=== PATIENT | female | born 1985 | race Two or more races ===

== ENCOUNTER 2018-05-01 14:00 | Emergency (ER) | payer OTHER ==
[~2018-05-01] VITALS: Ht 170.2 cm; Wt 72.6 kg
[~2018-05-01 14:00] MED LIST: CALCTAB25 PO; PREN-96 PO
[2018-05-01 17:07] LABS: Urine Bacteria NONE SEEN /hpf (None Seen); Urine Blood Negative /uL (Negative); Urine Specific Gravity 1.009 (1.001-1.035); Urine WBC 1 /hpf (0 - 5)
[2018-05-01 17:20] VITALS: BP 142/80
== END 2018-05-01 18:22 | disposition home or self-care (01) ==
LOC: ER 14:18
DX: O20.0 Threatened abortion (principal); Z3A.01 Less than 8 weeks gestation of pregnancy
CPT/HCPCS: 36415; 76801; 81001; 84702; 93005

== ENCOUNTER → 2018-06-05 | Outpatient (CLI) | payer OTHER ==
[2018-06-05 11:14] LABS: Basophils # (auto) 0 uL; Basophils % (auto) 0.2 % (0.0-2.0); Eosinophils # (auto) 0.1 uL; Eosinophils % (auto) 1.1 % (0.0-7.0); Hematocrit 39.8 % (36.0-46.0); Hemoglobin 13.2 g/dL (12.2-16.2); Lymphocytes # (auto) 1.9 uL; Lymphocytes % (auto) 22.7 % (10.0-50.0); Mean Corpuscular Hemoglobin 30.4 pg (28.0-32.0); Mean Corpuscular Hgb Conc. 33.2 g/dL (32.0-36.0); Mean Corpuscular Volume 91.7 fL (80.0-100.0); Monocytes # (auto) 0.4 uL; Monocytes % (auto) 4.9 % (0.0-12.0); Neutrophils % (auto) 71.1 % (37.0-80.0); Platelet Count (auto) 216 10^3/uL (140-450); Red Blood Cells 4.35 10^6/uL (4.0-5.20); White Blood Cell 8.4 10^3/uL (4.4-10.8)
[2018-06-05 12:05] LABS: Alcohol, Urine < 3.0 mg/dL (0-5); Amphetamine Screen, Urine NEGATIVE (NEGATIVE); Barbiturate Scree,Urine NEGATIVE (NEGATIVE); Benzodiazephine Screen, Urine NEGATIVE (NEGATIVE); Cannabinoid Screen, Urine NEGATIVE (NEGATIVE); Cocaine Screen, Urine NEGATIVE (NEGATIVE); Opiate Scree,Urine NEGATIVE (NEGATIVE); Phencyclidine Screen, Urine NEGATIVE (NEGATIVE)
== END | disposition home or self-care (01) ==
LOC: LAB 10:12
PROVIDERS: ATTEND Obstetrics & Gynecology
DX: O23.41 Unspecified infection of urinary tract in pregnancy, first trimester (principal); Z3A.11 11 weeks gestation of pregnancy; Z20.2 Contact with and (suspected) exposure to infections with a predominantly sexual mode of transmission
CPT/HCPCS: 36415; 80307; 83036; 84144; 84702; 85025; 86703; 86762; 86850; 86900; 86901; 87086; 87340

== ENCOUNTER → 2018-09-25 | Outpatient (CLI) | payer OTHER ==
[2018-09-25 07:53] LABS: Basophils # (auto) 0 uL; Basophils % (auto) 0.4 % (0.0-2.0); Eosinophils # (auto) 0.1 uL; Eosinophils % (auto) 1.1 % (0.0-7.0); Hematocrit 36.9 % (36.0-46.0); Hemoglobin 12.2 g/dL (12.2-16.2); Lymphocytes # (auto) 2.2 uL; Lymphocytes % (auto) 19.3 % (10.0-50.0); Mean Corpuscular Hemoglobin 30.4 pg (28.0-32.0); Mean Corpuscular Hgb Conc. 33.1 g/dL (32.0-36.0); Mean Corpuscular Volume 91.8 fL (80.0-100.0); Monocytes # (auto) 0.6 uL; Monocytes % (auto) 5.4 % (0.0-12.0); Neutrophils # (auto) 8.3 uL; Neutrophils % (auto) 73.8 % (37.0-80.0); Platelet Count (auto) 164 10^3/uL (140-450); Red Blood Cells 4.02 10^6/uL (4.0-5.20); Red Cell Distribution Width 13.5 % (11.8-14.3); White Blood Cell 11.2 10^3/uL (4.4-10.8)
== END | disposition home or self-care (01) ==
LOC: LAB 07:21
PROVIDERS: ATTEND Obstetrics & Gynecology
DX: O99.810 Abnormal glucose complicating pregnancy (principal); Z3A.26 26 weeks gestation of pregnancy
CPT/HCPCS: 36415; 82951; 85025

== ENCOUNTER → 2018-11-19 | Outpatient (CLI) | payer OTHER ==
[2018-11-19 10:17] LABS: Basophils # (auto) 0 uL; Basophils % (auto) 0.3 % (0.0-2.0); Eosinophils # (auto) 0.1 uL; Eosinophils % (auto) 1.2 % (0.0-7.0); Hemoglobin 12.6 g/dL (12.2-16.2); Lymphocytes # (auto) 2.4 uL; Lymphocytes % (auto) 20.8 % (10.0-50.0); Mean Corpuscular Hemoglobin 30.6 pg (28.0-32.0); Mean Corpuscular Volume 87.4 fL (80.0-100.0); Monocytes # (auto) 0.7 uL; Monocytes % (auto) 6.1 % (0.0-12.0); Neutrophils # (auto) 8.1 uL; Neutrophils % (auto) 71.6 % (37.0-80.0); Nucleated Red Blood Cells % 0.1 %; Platelet Count (auto) 161 10^3/uL (140-450); Red Blood Cells 4.11 10^6/uL (4.0-5.20); Red Cell Distribution Width 13.5 % (11.8-14.3); White Blood Cell 11.3 10^3/uL (4.4-10.8)
[2018-11-20 07:06] LABS: RPR Non Reactive (Non Reactive)
== END | disposition home or self-care (01) ==
LOC: LAB 09:49
PROVIDERS: ATTEND Obstetrics & Gynecology
DX: Z34.83 Encounter for supervision of other normal pregnancy, third trimester (principal); Z3A.35 35 weeks gestation of pregnancy
CPT/HCPCS: 36415; 84112; 85025; 86592

== ENCOUNTER 2018-12-12 09:45 | Observation (INO) | payer OTHER ==
[~2018-12-12] VITALS: Ht 170.2 cm; Wt 88.0 kg
== END 2018-12-12 10:54 | disposition home or self-care (01) | DRG 833 ==
LOC: LDRP 09:45
PROVIDERS: ADMIT Obstetrics & Gynecology; ATTEND Obstetrics & Gynecology
DX: O36.63X0 Maternal care for excessive fetal growth, third trimester, not applicable or unspecified (principal); O26.893 Other specified pregnancy related conditions, third trimester; R10.2 Pelvic and perineal pain; Z3A.38 38 weeks gestation of pregnancy
CPT/HCPCS: 59025; 76818; 81002; G0378

== ENCOUNTER 2018-12-15 09:10 | Observation (INO) | payer OTHER ==
[~2018-12-15 09:10] MED LIST changes: -CALCTAB25 PO
== END 2018-12-15 12:19 | disposition home or self-care (01) | DRG 833 ==
LOC: LDRP 09:10
PROVIDERS: ADMIT Specialist; ATTEND Specialist
DX: O36.63X0 Maternal care for excessive fetal growth, third trimester, not applicable or unspecified (principal); O42.913 Preterm premature rupture of membranes, unspecified as to length of time between rupture and onset of labor, third trimester; O62.9 Abnormality of forces of labor, unspecified; Z3A.38 38 weeks gestation of pregnancy
CPT/HCPCS: 59025; 81002; 84112; G0378

== ENCOUNTER 2018-12-17 04:43 | Inpatient (IN) | payer OTHER ==
[~2018-12-17] VITALS: Ht 170.2 cm; Wt 88.5 kg
[2018-12-17] MEDS ORDERED: LACTATED RINGER'S 1,000 ML IV ONE (04:45)
[2018-12-17] MEDS ORDERED: LACTATED RINGER'S 2,000 ML IV ONE (05:33)
[2018-12-17 05:48] LABS: Basophils # (auto) 0 uL; Basophils % (auto) 0.2 % (0.0-2.0); Eosinophils # (auto) 0.1 uL; Eosinophils % (auto) 0.9 % (0.0-7.0); Hematocrit 39.9 % (36.0-46.0); Hemoglobin 13.5 g/dL (12.2-16.2); Lymphocytes # (auto) 2.5 uL; Lymphocytes % (auto) 24.9 % (10.0-50.0); Mean Corpuscular Hemoglobin 30.9 pg (28.0-32.0); Mean Corpuscular Hgb Conc. 33.9 g/dL (32.0-36.0); Mean Corpuscular Volume 91.1 fL (80.0-100.0); Monocytes # (auto) 0.7 uL; Monocytes % (auto) 6.7 % (0.0-12.0); Neutrophils # (auto) 6.6 uL; Neutrophils % (auto) 67.3 % (37.0-80.0); Nucleated Red Blood Cells % 0.1 %; Platelet Count (auto) 159 10^3/uL (140-450); Red Blood Cells 4.38 10^6/uL (4.0-5.20); Red Cell Distribution Width 13.8 % (11.8-14.3); White Blood Cell 9.9 10^3/uL (4.4-10.8)
[2018-12-17 06:12] LABS: Albumin 2.7 g/dL (3.4-5.0); Calcium 8.7 mg/dL (8.5-10.1); INR < 0.93 (0.9-1.15)
[2018-12-17 06:15] LABS: BUN/Creatinine Ratio 14.5
[2018-12-17 06:18] LABS: Bilirubin, Total 0.2 mg/dL (0.2-1.0); Total Protein 6.4 g/dL (6.4-8.2)
[2018-12-17 06:24] LABS: Urine Bacteria FEW /hpf (None Seen); Urine Blood Negative /uL (Negative); Urine Mucus FEW (None Seen); Urine Specific Gravity 1.017 (1.001-1.035); Urine WBC 26 /hpf (0 - 5); Urine WBC Clumps PRESENT /hpf (None Seen)
[2018-12-17] MEDS: LACTATED RINGER'S 1,000 ML IV SCH ×3 (07:53→21:00)
[2018-12-17] MEDS ORDERED: PHENYLEPHRINE HCL 10 MG/ML VL ONE (08:01)
[2018-12-17] MEDS ORDERED: ePHEDrine SULFATE 50 MG/ML AMP ONE (08:01)
[2018-12-17] MEDS ORDERED: OXYTOCIN 10 UNIT/ML 10ML VIAL ONE (08:02)
[2018-12-17] MEDS ORDERED: SODIUM CHLORIDE LOCK 10 ML ONE (08:03)
[2018-12-17] MEDS ORDERED: ceFAZolin 1GM VL ONE (08:03)
[2018-12-17] MEDS ORDERED: TETRACAINE 1% INJ 2 ML VIAL IJ ONE (08:51)
[2018-12-17] MEDS ORDERED: HYDROmorphone HCL 2 MG/ML VL IV PRN (09:30)
[2018-12-17] MEDS ORDERED: ONDANSETRON HCL 4 MG/2 ML VIAL IV PRN ×3 (09:30→11:00)
[2018-12-17] MEDS ORDERED: NALOXONE HCL 0.4 MG/ML VIAL IV PRN ×2 (09:30→11:00)
[2018-12-17] MEDS ORDERED: MORPHINE SULF(PF) 0.5MG/ML 10ML VIAL ONE (09:37)
[2018-12-17] MEDS ORDERED: MIDAZOLAM HCL 1MG/1ML-2 ML VIAL ONE ×2 (09:57→10:03)
[2018-12-17] MEDS ORDERED: METOCLOPRAMIDE HCL 5MG/ml INJ 2ml VIAL ONE (10:10)
[2018-12-17] MEDS ORDERED: MORPHINE SULFATE 4 MG/ML SYR/VIAL IV PRN (10:15)
[2018-12-17] MEDS ORDERED: diphenhdrAMINE HCL 50 MG/1 ML VL IV PRN (11:00)
--- NOTE | 2018-12-17 11:18 | NUR ---
REPORT RECEIVED BY LIBBY IN OR: PT RECEIVED 40U PITOCIN AND ANCEF AT 1000. VITALS STABLE.
[2018-12-17 11:19] VITALS: BP 97/59
--- NOTE | 2018-12-17 11:19 | NUR ---
Post Op for LDRP: Received patient from PACU via bed to room 107a. Patient A/A/Ox4, abdominal binder and bilateral SCD's are in place, IV fluids placed on pump and infusing per order, incisional site dressing clean/dry/intact and Mitchell Catheter to gravity draining clear yellow urine. Incentive Spirometer at bedside and instruction on proper use with return demonstration done by patient. sig other at bedside
[2018-12-17] MEDS: LACT. RINGERS/OXYTOCIN 20UNITS 1,000 ML IV SCH ×3 (12:30→23:33)
[2018-12-17 12:44] VITALS: BP 116/71
[2018-12-17 13:30] VITALS: BP 100/61
[2018-12-17] MEDS ORDERED: ceFAZolin 1GM/50ML 50 ML IV SCH (14:00)
[2018-12-17] MEDS: KETOROLAC TROMETH 30 MG/ML 1ML VIAL IV PRN (15:10)
[2018-12-17 15:30] VITALS: BP 120/62
[2018-12-17] MEDS: ceFAZolin 1GM/50ML 50 ML IV SCH (17:23)
[2018-12-17 19:00] VITALS: BP 101/52
[2018-12-17 20:13] LABS: Basophils # (auto) 0 uL; Basophils % (auto) 0.2 % (0.0-2.0); Eosinophils # (auto) 0 uL; Eosinophils % (auto) 0.3 % (0.0-7.0); Hematocrit 35.3 % (36.0-46.0); Hemoglobin 11.8 g/dL (12.2-16.2); Lymphocytes % (auto) 16.8 % (10.0-50.0); Mean Corpuscular Hemoglobin 30.6 pg (28.0-32.0); Mean Corpuscular Hgb Conc. 33.3 g/dL (32.0-36.0); Mean Corpuscular Volume 91.8 fL (80.0-100.0); Monocytes # (auto) 0.8 uL; Monocytes % (auto) 6.4 % (0.0-12.0); Neutrophils # (auto) 9.2 uL; Neutrophils % (auto) 76.3 % (37.0-80.0); Platelet Count (auto) 137 10^3/uL (140-450); Red Blood Cells 3.85 10^6/uL (4.0-5.20); Red Cell Distribution Width 14.4 % (11.8-14.3); White Blood Cell 12.1 10^3/uL (4.4-10.8)
[2018-12-17 22:55] VITALS: BP 97/50
[2018-12-18] MEDS: KETOROLAC TROMETH 30 MG/ML 1ML VIAL IV PRN (00:59)
--- NOTE | 2018-12-18 01:05 | NUR ---
Ambulation: Pericare and teaching provided, Clean gown provided and bed linen changed. Mitchell remains intact, draining to gravity, hung below bladder no kinks noted. Patient OOB with standby assistance by RN. Patient transferred to chair steady gait. No distress noted.
[2018-12-18] MEDS: ceFAZolin 1GM/50ML 50 ML IV SCH ×2 (02:04→10:43)
[2018-12-18 03:00] VITALS: BP 93/54
[2018-12-18 06:48] LABS: Basophils # (auto) 0 uL; Basophils % (auto) 0.3 % (0.0-2.0); Eosinophils # (auto) 0.1 uL; Eosinophils % (auto) 0.9 % (0.0-7.0); Hematocrit 33.5 % (36.0-46.0); Hemoglobin 11.2 g/dL (12.2-16.2); Lymphocytes # (auto) 1.8 uL; Lymphocytes % (auto) 18.3 % (10.0-50.0); Mean Corpuscular Hgb Conc. 33.4 g/dL (32.0-36.0); Mean Corpuscular Volume 92.7 fL (80.0-100.0); Monocytes # (auto) 0.7 uL; Monocytes % (auto) 7.2 % (0.0-12.0); Neutrophils # (auto) 7.3 uL; Neutrophils % (auto) 73.3 % (37.0-80.0); Nucleated Red Blood Cells % 0.1 %; Platelet Count (auto) 137 10^3/uL (140-450); Red Blood Cells 3.62 10^6/uL (4.0-5.20); Red Cell Distribution Width 13.9 % (11.8-14.3)
[2018-12-18 07:30] VITALS: BP 103/62
[2018-12-18 08:06] LABS: RPR Non Reactive (Non Reactive)
--- NOTE | 2018-12-18 08:20 | NUR ---
Idaz catheter dc'd Order to discontinue diaz catheter. Diaz dc'd with clean technique following deflation of balloon. Patient tolerated well with no complaints of pain. Continue care.
[2018-12-18] MEDS ORDERED: HYDROcodone-ACET 5/325MG TAB PO PRN ×2 (08:30)
[2018-12-18] MEDS ORDERED: BISACODYL 10 MG RECT SUPP PR PRN (08:30)
[2018-12-18] MEDS: IBUPROFEN 800 MG TAB PO PRN ×2 (08:51→16:06)
[2018-12-18] MEDS: DOCUSATE SOD 100 MG CAP PO SCH ×2 (10:43→21:51)
[2018-12-18] MEDS: DOCUSATE CALCIUM 240 MG CAP PO SCH (10:43)
[2018-12-18 11:30] VITALS: BP 96/60
[2018-12-18] MEDS: SIMETHICONE 80 MG CHEWABLE TABLET PO SCH ×3 (13:23→21:51)
[2018-12-18 15:00] VITALS: BP 93/55
[2018-12-18 19:00] VITALS: BP 101/61
[2018-12-18 23:00] VITALS: BP 95/51
[2018-12-19] MEDS: IBUPROFEN 800 MG TAB PO PRN ×3 (00:13→17:20)
[2018-12-19 03:00] VITALS: BP 103/55
[2018-12-19] MEDS: SIMETHICONE 80 MG CHEWABLE TABLET PO SCH ×4 (05:27→22:06)
[2018-12-19 06:30] VITALS: BP 107/59
[2018-12-19] MEDS: DOCUSATE CALCIUM 240 MG CAP PO SCH (09:32)
[2018-12-19] MEDS: DOCUSATE SOD 100 MG CAP PO SCH ×2 (09:33→22:06)
[2018-12-19 11:30] VITALS: BP 94/55
[2018-12-19 14:30] VITALS: BP 100/66
[2018-12-19 19:00] VITALS: BP 104/69
[2018-12-19 23:15] VITALS: BP 111/66
[2018-12-20] MEDS: IBUPROFEN 800 MG TAB PO PRN ×2 (00:55→08:38)
[2018-12-20 03:15] VITALS: BP 122/58
[2018-12-20] MEDS: SIMETHICONE 80 MG CHEWABLE TABLET PO SCH (05:45)
[2018-12-20 07:30] VITALS: BP 110/70
--- NOTE | 2018-12-20 09:00 | NUR ---
Discharge: Discharge instructions given as ordered. Pt encouraged to follow up with [facility] as instructed. All questions and concerns addressed. Patient verbalized understanding. Medication reconciliation completed and copy given to patient. All required/requested vaccines given and copies of vaccinations given to patient. Patient encouraged to prepare to depart unit.
--- NOTE | 2018-12-20 09:06 | NUR ---
Discharge: Patient taken to vehicle via wheelchair with all personal belongings, accompanied by staff and family member. No distress noted at time of departure, no adverse changes in status since initial assessment.
== END 2018-12-20 09:06 | disposition home or self-care (01) | DRG 788 ==
LOC: LDRP 04:43
PROVIDERS: ADMIT Obstetrics & Gynecology; ATTEND Obstetrics & Gynecology
PROC: 10D00Z1 Extraction of Products of Conception, Low, Open Approach (ICD-10-PCS; principal; 2018-12-17 09:26)
DX: O34.211 Maternal care for low transverse scar from previous cesarean delivery (principal); O99.344 Other mental disorders complicating childbirth; O99.214 Obesity complicating childbirth; E66.9 Obesity, unspecified; F41.9 Anxiety disorder, unspecified; Z37.0 Single live birth; Z3A.39 39 weeks gestation of pregnancy
CPT/HCPCS: 36415; 51702; 59025; 80053; 81001; 81002; 84112; 85025; 85610; 85730; 86592; 86850; 86900; 86901; 94762; 96361; 96366; G0378; J0690; J1885; J2250; J2590